=== PATIENT | male | born 2000 | race African-American/Black ===

== ENCOUNTER 2023-03-15 06:21 | Emergency (ER) | payer MEDICAID ==
[~2023-03-15] VITALS: Ht 188 cm; Wt 88.5 kg
[2023-03-15] MEDS ORDERED: KETOROLAC 60MG/2ML VIAL IM ONE (06:45)
[2023-03-15 06:56] VITALS: BP 131/80
[2023-03-15] MEDS ORDERED: IBUP-2029 MT (07:39)
[2023-03-15] MEDS ORDERED: CYCL10TA21 MT (07:39)
== END 2023-03-15 08:00 | disposition home or self-care (01) ==
LOC: ER 06:21
DX: M54.9 Dorsalgia, unspecified (principal); Z90.49 Acquired absence of other specified parts of digestive tract
CPT/HCPCS: 72070; 96372; 99283; J1885; Z7610

== ENCOUNTER 2023-08-02 15:45 | Emergency (ER) | payer MEDICAID ==
[~2023-08-02] VITALS: Ht 185.4 cm; Wt 83.0 kg
[~2023-08-02 15:45] MED LIST: CYCL10TA21 MT; IBUP-2029 MT
[2023-08-02 15:54] VITALS: BP 134/79; PULSE 80; RESP 16; TEMP 99; O2SAT 99
[2023-08-02] MEDS ORDERED: ASPI1TAB8 PO (17:32)
[2023-08-02] MEDS ORDERED: IMIT25 MT (17:47)
== END 2023-08-02 18:08 | disposition home or self-care (01) ==
LOC: ER 15:45
DX: G43.909 Migraine, unspecified, not intractable, without status migrainosus (principal); Z76.0 Encounter for issue of repeat prescription; Z90.49 Acquired absence of other specified parts of digestive tract
CPT/HCPCS: 99281

== ENCOUNTER 2023-08-11 12:11 | Emergency (ER) | payer MEDICAID ==
[~2023-08-11] VITALS: Ht 185.4 cm; Wt 84.0 kg
[~2023-08-11 12:11] MED LIST changes: +ASPI1TAB8 PO; +IMIT25 MT
[2023-08-11 12:19] VITALS: RESP 20
[2023-08-11 12:36] VITALS: BP 123/79; PULSE 83; TEMP 98.9; O2SAT 98
[2023-08-11 14:35] LABS: BASOPHILS % 0.4 % (0.0-2.0); EOSINOPHILS % 0.5 % (0.0-5.0); HEMATOCRIT. 43.8 % (42.0-52.0); LYMPHOCYTES % 23.2 % (20.0-50.0); MEAN CORPUSCULAR HEMOGLOBIN 28.3 pg (28.0-32.0); MEAN CORPUSCULAR HGB CONC 34.2 g/dL (31.0-37.0); MEAN CORPUSCULAR VOLUME 82.8 fL (80.0-94.0); MEAN PLATELET VOLUME 7.8 fl (7.4-10.4); MONOCYTES % 11.7 % (2.0-8.0); NEUTROPHILS % 64.2 % (40.0-76.0); PLATELET 222 x1000/uL (130-400); RED BLOOD CELL COUNT 5.29 mill/uL (4.7-6.1); RED CELL DISTRIBUTION WIDTH 14.4 % (11.6-14.6); WHITE BLOOD COUNT 3.9 x1000/uL (4.5-11.0)
[2023-08-11 14:36] LABS: CHLORIDE 106 mEq/L (98-107); INDEX HEMOLYSI 1 (1-3); INDEX ICTERIC 1 (1-4); INDEX LIPEMIC 1 (1-3); POTASSIUM 4.1 mEq/L (3.5-5.1); SODIUM 138 mEq/L (136-145)
[2023-08-11 14:42] LABS: ALANINE AMINOTRANSFERASE 21 IU/L (13-61); ALBUMIN 4.2 g/dL (3.4-5.0); ASPARTATE AMINOTRANSFERASE 17 IU/L (15-37); BILIRUBIN TOTAL 1.2 mg/dL (0.1-1.0); CALCIUM 9.5 mg/dL (8.5-10.1); CARBON DIOXIDE 31 mEq/L (21-32); GLUCOSE 96 mg/dL (70-105); PROTEIN TOTAL 8.1 g/dL (6.0-8.3); UREA NITROGEN BLOOD 14 mg/dL (7-21)
[2023-08-11] MEDS ORDERED: ONDANSETRON 4MG ODT PO ONE (14:45)
[2023-08-11] MEDS ORDERED: ONDA4TAB11 PO (17:15)
[2023-08-11] MEDS ORDERED: SUMA25TA9 MT (17:15)
== END 2023-08-11 17:46 | disposition home or self-care (01) ==
LOC: ER 13:07
DX: G43.909 Migraine, unspecified, not intractable, without status migrainosus (principal); R11.2 Nausea with vomiting, unspecified; Z90.49 Acquired absence of other specified parts of digestive tract
CPT/HCPCS: 99283; 80053; 83690; 85025; 36415; Q0162